=== PATIENT | female | born 2000 | race Asian ===

== ENCOUNTER 2024-09-19 01:16 | Emergency (ER) | payer OTHER ==
[~2024-09-19] VITALS: Ht 160 cm; Wt 64.5 kg
[2024-09-19 02:30] VITALS: BP 127/77; PULSE 71; RESP 20; TEMP 98.3; O2SAT 100
[2024-09-19] MEDS: DiphenhydrAMINE HCL 25 MG CAPSULE PO ONE (02:45)
[2024-09-19] MEDS: PredniSONE 20 MG TABLET PO ONE (02:46)
[2024-09-19] MEDS: FAMOTIDINE 20 MG TABLET PO ONE (02:46)
[2024-09-19] MEDS ORDERED: PRED-554 PO (03:24)
[2024-09-19] MEDS ORDERED: EPIN0.3P3 IM (03:24)
== END 2024-09-19 03:53 | disposition home or self-care (01) ==
LOC: EMS 01:16
DX: T78.40XA Allergy, unspecified, initial encounter (principal); Z91.010 Allergy to peanuts; X58.XXXA Exposure to other specified factors, initial encounter
CPT/HCPCS: 99284; J7512